=== PATIENT | male | born 1980 | race Asian ===

== ENCOUNTER → 2024-07-13 | Outpatient (CLI) | payer OTHER, BC ==
--- NOTE | 2024-07-13 16:59 | DVHSR ---
APPROVED REPORT EXAM: Two-dimensional and M-mode echocardiogram with Doppler and color Doppler. INDICATION Hypertension RISK FACTORS Hypertension: Height: 70, Weight: 204 DIMENSIONS LVDd3.6 (3.8-5.7cm)LA (2D)3.6 (1.9-4.0cm)Aortic Root3.4 (2.0-3.7cm) LVDs2.5 (2.5-4.0cm)LA (MM) (1.9-4.0cm)Aortic Cusp Exc1.7 (1.5-2.0cm) EF (%) 60.0 (55-70%)Rt. Atrium4.1 (1.9-4.0cm)Asc. Aorta3.0 cm Mitral Valve MitralMitral Stenosis E wave0.98m/sMV Mean GR.mmHg A wave0.82m/sMV Peak GR.mmHg E/A ratio1.22D MVAcm2 DECEL [id number] 1/2 [place] Aortic Valve Aortic ValveAortic Stenosis V10.81m/Quinn Mean GR.5mmHg V21.45m/Quinn Peak GR.8mmHg LVOT Diameter2.2 (1.8-2.4cm)Doppler AVA2.12cm2 Pulmonic Valve V20.86m/s Tricuspid Valve TR Velocity2.69m/s [id number] Conclusion Normal left ventricular size and dimension. Normal left ventricular systolic function. Normal diast olic function. Normal right ventricular size and dimension. Normal right ventricular systolic function. Slightly i ncreased pulmonary artery systolic [id number] mm of mercury Normal biatrial size and dimension. Normal aortic valve structure and function Normal mitral valve structure and function Normal tricuspid valve structure and function. The pulmonary valve is grossly normal. No pericardial effusion.
== END | disposition home or self-care (01) ==
LOC: XYW 12:50
PROVIDERS: ATTEND Internal Medicine
DX: I10 Essential (primary) hypertension (principal)
CPT/HCPCS: 93306